=== PATIENT | male | born 1975 | race Caucasian/White ===

== ENCOUNTER 2017-10-02 21:21 | Observation (INO) ==
[2017-10-03] MEDS ORDERED: Sod Chloride 0.9% Inj 1,000 ML IV.SIG ONE ×4 (02:13→11:13)
[2017-10-03] MEDS ORDERED: Morphine Inj 4 MG/ML Vial IV.PUSH ONE (02:13)
--- NOTE | 2017-10-03 02:16 | ED ---
HPI General Chief complaint: Abdominal Pain Stated complaint: Vomiting Time Seen by Provider: 10/03/17 02:12 Source: patient History of Present Illness HPI narrative: The patient is a 41 year old male who presents to the [facility] emergency department with a history of awakening in the morning yesterday with nausea vomiting. 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 The patient reports having continued nausea and vomiting at least an estimated 30 times throughout the day. He reports that he then began to feel dizzy, lightheaded, and have generalized body cramping. He denies having any diarrhea. He last moved his bowels earlier today. He denies having any blood in his stool or black or tarry stools. He reports that he has pain along the sides of his abdomen. He reports that this comes and goes and is also a cramping sensation. The patient denies having any known recent fevers. On review of systems otherwise, he denies having any cough or congestion, neck pain, chest pain, shortness of breath, urinary symptoms, or neurologic symptoms. Related Data Home Medications Medication Instructions Recorded Confirmed atorvastatin 20 mg PO HS 10/03/17 10/03/17 Allergies Allergy/AdvReac Type Severity Reaction Status Date / Time No Known Allergies Allergy Unverified 10/03/17 04:58 Review of Systems ROS Unobtainable All other systems reviewed negative except as stated in HPI PMFSH History History Provided By: Patient Medical History Medical History Hyperlipidemia (Acute) Surgical History Surgical History H/O knee surgery (Acute) Social History Social History Substance History: No History of Abuse Second Hand Smoke Exposure: No Smoking Status: Former smoker Tobacco Type: Cigarettes How Often Do You Have a Drink Containing Alcohol: Monthly or less Recent Travel [facility] within the Last 8 Weeks: No Recent Out of Country Travel within the Last 8 Weeks: No Exam HENMT Head: normocephalic and atraumatic Nose: no nasal discharge and no epistaxis Mouth: moist mucous membranes Eyes Sclera: normal sclerae Pupils: PERRL Neck Neck: trachea midline and no JVD Resp Effort & Inspection: no use of accessory muscles Auscultation: clear to auscultation bilaterally Cardio Rate: regular rate Rhythm: regular rhythm Heart Sounds: no murmurs GI Inspection: non-distended Palpation: soft, no hepatosplenomegaly and tender (The patient reports having tenderness on palpation of bilateral sides of the abdomen. No tenderness specifically on palpation over McBurney's point. Hart sign. Normal bowel sounds are audible. No guarding, rebound, or rigidity.) Skin General: dry skin (warm) Neuro General: alert and awake Cranial Nerves: other Speech: speech normal Motor: no movement abnormalities noted Extrem General: normal to inspection, no clubbing, no cyanosis and no edema Psych Mood: congruent mood Affect: normal affect Judgment: judgment good Course Hospital Course: During the course of the patient's emergency department visit, the patient's history, examination, and differential diagnosis were reviewed with the patient. The patient was placed on a cardiac cath lab radiology technologist with oximetry and frequent blood pressure monitoring. The patient had IV access obtained and blood work sent for analysis. The patient was initially provided normal saline 1 L IV fluid bolus. Reglan 5 mg IV. Reevaluation(s) Reevaluation #1: The patient's results were discussed with him regarding his acute kidney injury. The patient is agreeable with the plan to proceed with admission for IV fluid resuscitation. The patient reports that he is feeling improved after his initial liter of normal saline IV fluids. Time: 05:33 Consultations Consultation #1: The patient's case including history, pertinent physical examination findings, and laboratory studies were discussed with . It was agreed that the patient would be admitted to the hospitalist service. Time: 05:38 Initial Documented Vital Signs Temperature 97.8 F 10/02/17 21:26 Pulse Rate 84 10/02/17 21:26 Respiratory Rate 16 10/02/17 21:26 Blood Pressure 147/101 H 10/02/17 21:26 Pulse Oximetry 98 10/02/17 21:26 Last Documented Vital Signs Temperature 97.8 F 10/02/17 21:26 Pulse Rate 84 10/03/17 03:41 Respiratory Rate 16 10/03/17 03:41 Blood Pressure 147/101 H 10/03/17 03:41 Pulse Oximetry 98 10/03/17 03:41 Medical Decision Making MDM Narrative Medical decision making narrative: The patient's diagnostic studies are remarkable for a white count of 18.7, hemoglobin 16.5, neutrophil predominance at 89.5, platelets are 282. PT 11.3, PTT 27.3, the patient's chemistry is remarkable for a glucose of 125, CPK 355 with a normal MB percent, GFR of 25, creatinine 2.74 with a BUN of 41, CO2 17.8, anion gap 18, alk phos 121, albumin 5.7. Troponin I is less than 0.02. The patient will be admitted to the hospital for an acute kidney injury, continued on IV fluids as resuscitation. This could be related to dehydration. The patient was started on a second liter of normal saline IV fluids. The patient's results were discussed with the patient, including the plan of care. I explained that further testing and/ or monitoring is indicated based on the patient's history, examination, and/ or laboratory findings. Therefore, I recommended admission for additional evaluation. The patient expressed understanding and was agreeable with this plan. The patient was admitted to the hospital in stable condition and sent to a bed under the care of the [facility] service Differential Diagnosis Differential Diagnosis: Rhabdomyolysis, versus dehydration, versus electrolyte derangements, versus viral syndrome, versus pancreatitis, versus diverticulitis , versus colitis Medical Records Medical records reviewed: Yes I reviewed the patient's medical records. Lab Data Lab results reviewed: Yes I reviewed the patient's lab results. Result diagrams: 10/03/17 03:00 10/03/17 03:00 Lab Results 10/03/17 10/03/17 10/03/17 Range/Units 03:00 03:00 03:00 WBC 18.7 H (4.0-11.0) th/mm3 RBC 5.69 (4.50-5.90) mil/mm3 Hgb 16.5 (13.0-17.0) gm/dL Hct 48.9 (39.0-51.0) % MCV 86.0 (80.0-100.0) fL MCH 29.0 (27.0-34.0) pg MCHC 33.7 (32.0-36.0) % RDW 13.3 (11.6-17.2) % Plt Count 282 (150-450) th/mm3 MPV 8.3 (7.0-11.0) fL Neut % (Auto) 89.5 H (16.0-70.0) % Lymph % (Auto) 6.3 L (9.0-44.0) % [place] % (Auto) 4.0 (0.0-8.0) % Eos % (Auto) 0.0 (0.0-4.0) % Baso % (Auto) 0.2 (0.0-2.0) % Neut # (Auto) 16.7 H (1.8-7.7) th/mm3 Lymph # (Auto) 1.2 (1.0-4.8) th/mm3 [place] # (Auto) 0.8 (0.0-0.9) th/mm3 Eos # (Auto) 0.0 (0.0-0.4) th/mm3 Baso # (Auto) 0.0 (0.0-0.2) th/mm3 WBC Differential . Differential Comment Auto diff final PT 11.3 (9.8-11.6) sec INR 1.1 Ratio APTT 27.1 (24.3-30.1) sec Sodium 136 (136-145) meq/L Potassium 4.0 (3.5-5.1) meq/L Chloride 100 (98-107) meq/L Carbon Dioxide 17.8 L (21.0-32.0) meq/L Anion Gap 18 H (5-15) meq/L BUN 41 H (7-18) mg/dL Creatinine 2.74 H (0.60-1.30) mg/dL Estimated GFR 25 L (>89) mL/min Random Glucose 125 H (74-106) mg/dL Calcium 10.7 H (8.5-10.1) mg/dL Total Bilirubin 0.8 (0.2-1.0) mg/dL AST 32 (15-37) U/L ALT 59 (12-78) U/L Alkaline Phosphatase 121 H (45-117) U/L Total Creatine Kinase 355 H (39-308) U/L CK-MB (CK-2) 2.7 (0.5-3.6) ng/mL CK-MB (CK-2) % 0.8 (0.0-4.0) % Troponin I Less than 0.02 L (0.02-0.05) ng/mL Total Protein 9.9 H (6.4-8.2) g/dL Albumin 5.7 H (3.4-5.0) g/dL Lipase 95 (73-393) U/L ECG Data Attestation: I personally reviewed and interpreted this ECG as follows: Interpretation: The patient had an EKG done on arrival. The patient's EKG shows a sinus bradycardia with a sinus arrhythmia, QRS duration is 106 ms, QTC [address] segment elevation is noted, T waves are inverted in V1, lead III. Discharge Plan Discharge Disposition Patient Disposition: 30 Still Patient Discharge Condition Condition: Fair Discharge Details Discharge Problem: Acute kidney injury Physicians Team ED Provider: Olya Galvan Rxs /Orders / Referrals /Forms Prescriptions: No Action atorvastatin 20 mg PO HS RF: 0 Discharge Interventions Interventions: Vital Signs Last Done: 10/03/17 03:41 Status ED Status: With Doctor
[2017-10-03 03:36] LABS: Baso % (Auto) 0.2 % (0.0-2.0); Hematocrit 48.9 % (39.0-51.0); Hemoglobin 16.5 gm/dL (13.0-17.0); Lymph # (Auto) 1.2 th/mm3 (1.0-4.8); Lymph % (Auto) 6.3 % (9.0-44.0); Mean Corpuscular HGB Conc 33.7 % (32.0-36.0); Mean Platelet Volume 8.3 fL (7.0-11.0); Mono # (Auto) 0.8 th/mm3 (0.0-0.9); Neut # (Auto) 16.7 th/mm3 (1.8-7.7); Neut % (Auto) 89.5 % (16.0-70.0); Platelet Count 282 th/mm3 (150-450); Red Blood Count 5.69 mil/mm3 (4.50-5.90); Red Cell Distribution Width 13.3 % (11.6-17.2); White Blood Count 18.7 th/mm3 (4.0-11.0)
[2017-10-03 03:53] LABS: Activated Partial Thrombo Time 27.1 sec (24.3-30.1); INR 1.1 Ratio; Prothrombin Time 11.3 sec (9.8-11.6)
[2017-10-03 03:56] LABS: Albumin 5.7 g/dL (3.4-5.0); Anion Gap 18 meq/L (5-15); Blood Urea Nitrogen 41 mg/dL (7-18); Calcium 10.7 mg/dL (8.5-10.1); Carbon Dioxide 17.8 meq/L (21.0-32.0); Chloride 100 meq/L (98-107); Glucose,Random 125 mg/dL (74-106); Lipase 95 U/L (73-393); Sodium 136 meq/L (136-145)
[2017-10-03 05:01] LABS: Alanine Aminotransferase 59 U/L (12-78); Alkaline Phosphatase 121 U/L (45-117); Creatine Kinase 355 U/L (39-308)
[2017-10-03 05:23] LABS: Aspartate Aminotransferase 32 U/L (15-37); Glomerular Filtration Rate 25 mL/min (>89)
[2017-10-03 05:27] LABS: CKMB Percent 0.8 % (0.0-4.0); Creatine Kinase MB 2.7 ng/mL (0.5-3.6); Total Protein 9.9 g/dL (6.4-8.2)
--- NOTE | 2017-10-03 06:08 | P.PNIM ---
Subjective Interval history: Discussed with ER physician. Patient with leukocytosis, significant anion gap, nausea, vomiting, abdominal pain. Awaiting CT abdomen, lactate prior to accepting to hospitalist service. Physical Exam Vital signs: Vital Signs 10/02/17 21:26 10/03/17 03:41 Temperature 97.8 F Pulse Rate 84 84 Respiratory Rate 16 16 Blood Pressure 147/101 H 147/101 H Pulse Oximetry 98 98 Intake & Output 10/02/17 10/02/17 10/03/17 06:59 18:59 06:59 Weight 81.647 kg Results - Labs CBC & Chem 7: 10/03/17 03:00 10/03/17 03:00 Laboratory Results - last 24 hr 10/03/17 10/03/17 10/03/17 03:00 03:00 03:00 WBC 18.7 H RBC 5.69 Hgb 16.5 Hct 48.9 MCV 86.0 MCH 29.0 MCHC 33.7 RDW 13.3 Plt Count 282 MPV 8.3 Neut % (Auto) 89.5 H Lymph % (Auto) 6.3 L [place] % (Auto) 4.0 Eos % (Auto) 0.0 Baso % (Auto) 0.2 Neut # (Auto) 16.7 H Lymph # (Auto) 1.2 [place] # (Auto) 0.8 Eos # (Auto) 0.0 Baso # (Auto) 0.0 WBC Differential . Differential Comment Auto diff final PT 11.3 INR 1.1 APTT 27.1 Sodium 136 Potassium 4.0 Chloride 100 Carbon Dioxide 17.8 L Anion Gap 18 H BUN 41 H Creatinine 2.74 H Estimated GFR 25 L Random Glucose 125 H Calcium 10.7 H Total Bilirubin 0.8 AST 32 ALT 59 Alkaline Phosphatase 121 H Total Creatine Kinase 355 H CK-MB (CK-2) 2.7 CK-MB (CK-2) % 0.8 Troponin I Less than 0.02 L Total Protein 9.9 H Albumin 5.7 H Lipase 95
[2017-10-03 07:01] LABS: Amphetamine Screen,Urine Neg (Neg); Barbiturate Screen,Urine Neg (Neg); Cannabinoid Screen,Urine Pos (Neg); Cocaine Screen,Urine Neg (Neg); Opiate Screen,Urine Pos (Neg)
[2017-10-03 07:03] LABS: Bacteria,Urine Few /hpf; Bilirubin,Urine Negative (Negative); Calcium Oxalate Crystals,Urine Rare /hpf; Color,Urine Yellow (Yellw/Straw); Glucose,Urine (UA) Negative (Negative); Hyaline Casts,Urine 22 /lpf (0-3); Leukocyte Esterase,Urine Negative (Negative); Mucus,Urine Moderate /lpf (Occasional); Nitrite,Urine Negative (Negative); Specific Gravity,Urine 1.023 (1.002-1.035); Squamous Epithelial Cell,Urine 2 /hpf (0-5)
[2017-10-03 07:04] LABS: Clarity,Urine Hazy (Clear)
[2017-10-03] MEDS ORDERED: Temazepam 15 MG Capsule PO PRN (08:51)
[2017-10-03] MEDS ORDERED: Bisacodyl 10 MG Supp RECTAL PRN (08:51)
--- NOTE | 2017-10-03 09:30 | P.HPIM ---
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 Says yesterday he vomited 30 times, nbnb vomitus. No diarrhea. Says is not food related as no one else is sick who ate the same food. No sick contacts. 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 The patient reports having continued nausea and vomiting at least an estimated 30 times throughout the day. He reports that he then began to feel dizzy, lightheaded, and have generalized body cramping. He denies having any diarrhea. He last moved his bowels earlier today. He denies having any blood in his stool or black or tarry stools. He reports that he has pain along the sides of his abdomen. He reports that this comes and goes and is also a cramping sensation. The patient denies having any known recent fevers. On review of systems otherwise, he denies having any cough or congestion, neck pain, chest pain, shortness of breath, urinary symptoms, or neurologic symptoms. Primary Care Physician: UNKNOWN - Inpatient Certification If this patient has been admitted as an Inpatient: I certify that the inpatient services were ordered in accordance with Medicare regulations governing the order. This includes certification that hospital inpatient services are reasonable and necessary and in the case of services not specified as inpatient-only under 42 CFR 419.22(n), that they are appropriately provided as inpatient services in accordance to with the 2-midnight benchmark under 43 CFR 412.3(e) [facility] - History History Provided By: Patient - Medical History Medical History: Medical History (Last Reviewed 10/03/17 @ 08:45 by Maryann Rock) Hyperlipidemia - Surgical History Surgical History: Surgical History (Last Reviewed 10/03/17 @ 08:45 by Maryann Rock) H/O knee surgery - Family History Family History: Family History (Last Updated 10/03/17 @ 09:29 by Divya Cowart MD) Other Family history of diabetes mellitus Family history of hypertension Stroke - Tobacco History Second Hand Smoke Exposure: No Tobacco Use In Past 30 Days: No Smoking Status: Former smoker Tobacco Type: Cigarettes - Alcohol History How Often Do You Have a Drink Containing Alcohol: Monthly or less - Substance Use History Substance History: No History of Abuse - Travel History Recent Travel in the [place] Within the Last 8 Weeks: No Recent Travel Out of the Country Within the Last 8 Weeks: No - Immunization History Tetanus Immunization: >5 Years Hx Influenza Vaccine This Season: No Medications and Allergies Active Medications: Active Medications Al Hydroxide/Mg Hydroxide (Milk Of Magnesia Liq) 30 ml PO Q12H PRN PRN Reason: Mild Constipation Atorvastatin Calcium (Lipitor) 20 mg PO HS MUNA Bisacodyl (Dulcolax Supp) 10 mg RECTAL DAILY PRN PRN Reason: SEVERE CONSITIPATION Enoxaparin Sodium (Lovenox Inj) 30 mg SQ Q24H MUNA Sodium Chloride (Ns Inj) 1,000 mls @ 100 mls/hr IV.CONT .Q10H MUNA Lactulose (Lactulose Liq) 30 ml PO DAILY PRN PRN Reason: SEVERE CONSITIPATION Ondansetron HCl (Zofran Inj) 4 mg IV.PUSH Q6H PRN PRN Reason: NAUSEA OR VOMITING Senna/Docusate Sodium (Meron-Colace) 1 tab PO BID MUNA Sennosides (Senokot) 17.2 mg PO Q12H PRN PRN Reason: Moderate Constipation Sodium Chloride (Ns Flush) 2 ml IV.FLUSH PRN PRN PRN Reason: FLUSH AFTER USING IV ACCESS Temazepam (Restoril) 15 mg PO HS PRN PRN Reason: INSOMNIA Allergies Allergy/AdvReac Type Severity Reaction Status Date / Time No Known Allergies Allergy Unverified 10/03/17 04:58 Home Medications Medication Instructions Recorded Confirmed Type atorvastatin 20 mg PO HS 10/03/17 10/03/17 History Exam Vital signs: Vital Signs 10/02/17 21:26 10/03/17 03:41 10/03/17 08:54 Temperature 97.8 F Pulse Rate 84 84 75 Respiratory Rate 16 16 18 Blood Pressure 147/101 H 147/101 H 112/66 Pulse Oximetry 98 98 97 Intake & Output 10/02/17 10/03/17 10/03/17 18:59 06:59 18:59 Weight 81.647 kg Narrative: GENERAL: Pleasant 41-year-old male well nourished well-developed patient appears in not acute distress at this time. SKIN: Warm and dry. HEAD: Atraumatic. Normocephalic. EYES: Pupils equal and round. No scleral icterus. No injection or drainage. ENT: No nasal bleeding or discharge. Mucous membranes pink and moist. NECK: Trachea midline. No JVD. CARDIOVASCULAR: Regular rate and rhythm. RESPIRATORY: No accessory muscle use. Clear to auscultation. Breath sounds equal bilaterally. GASTROINTESTINAL: Abdomen soft, mild diffuse abdominal tenderness, nondistended. MUSCULOSKELETAL: Extremities without clubbing, cyanosis, or edema. No obvious deformities. NEUROLOGICAL: Awake and alert. No obvious cranial nerve deficits. Motor grossly within normal limits. Five out of 5 muscle strength in the arms and legs. Normal speech. PSYCHIATRIC: Appropriate mood and affect; insight and judgment normal. Results - Labs CBC & Chem 7: 10/03/17 03:00 10/03/17 03:00 Labs: Short CBC 10/03/17 Range/Units 03:00 WBC 18.7 H (4.0-11.0) th/mm3 Hgb 16.5 (13.0-17.0) gm/dL Hct 48.9 (39.0-51.0) % Plt Count 282 (150-450) th/mm3 BMP 10/03/17 03:00 Sodium 136 Potassium 4.0 Chloride 100 Carbon Dioxide 17.8 L BUN 41 H Creatinine 2.74 H Calcium 10.7 H Cardiac Enzymes 10/03/17 Range/Units 03:00 Total Creatine Kinase 355 H (39-308) U/L CK-MB (CK-2) 2.7 (0.5-3.6) ng/mL Troponin I Less than 0.02 L (0.02-0.05) ng/mL Liver Function 10/03/17 Range/Units 03:00 Total Bilirubin 0.8 (0.2-1.0) mg/dL AST 32 (15-37) U/L ALT 59 (12-78) U/L Alkaline Phosphatase 121 H (45-117) U/L Albumin 5.7 H (3.4-5.0) g/dL Urine 10/03/17 Range/Units 06:15 Urine Color Yellow (Yellw/Straw) Urine Clarity Hazy H (Clear) Urine pH 5.0 (5.0-8.5) Ur Specific Anthony 1.023 (1.002-1.035) Urine Protein 30 H (Neg-Trace) mg/dL Urine Glucose (UA) Negative (Negative) mg/dL - Imaging Impressions Abdomen/Pelvis CT 10/03/17 06:05 CONCLUSION: 1. Negative noncontrast CT abdomen/pelvis. Caprini VTE Risk Assessment Caprini VTE Risk Assessment: Moderate/High Risk (score >= 2) Caprini Risk Assessment Model: Point Value = 1 Point Value = 2 Point Value = 3 Point Value = 5 Age 41-60 Minor surgery BMI > 25 kg/m2 Swollen legs Varicose veins or History of unexplained or recurrent spontaneous Oral contraceptives or hormone replacement Sepsis (< 1 month) Serious lung disease, including pneumonia (< 1 month) Abnormal pulmonary function Acute myocardial infarction Congestive heart failure (< 1 month) History of inflammatory bowel disease Medical patient at bed rest Age 61-74 Arthroscopic surgery Major open surgery (> 45 min) Laparoscopic surgery (> 45 min) Malignancy Confined to bed (> 72 hours) Immobilizing plaster cast Central venous access Age >= 75 History of VTE Family history of VTE Factor V Leiden Prothrombin [id number] Lupus anticoagulant Anticardiolipin antibodies Elevated serum homocysteine Heparin-induced thrombocytopenia Other congenital or acquired thrombophilia Stroke (< 1 month) Elective arthroplasty Hip, pelvis, or leg fracture Acute spinal cord injury (< 1 month) Prophylaxis Regimen: Total Risk Factor Score Risk Level Prophylaxis Regimen 0-1 Low Early ambulation 2 Moderate Order ONE of the following: *Sequential Compression Device (SCD) *Heparin 5000 units SQ BID 3-4 Higher Order ONE of the following medications: *Heparin 5000 units SQ TID *Enoxaparin/Lovenox 40 mg SQ daily (WT < 150 kg, CrCl > 30 mL/min) *Enoxaparin/Lovenox 30 mg SQ daily (WT < 150 kg, CrCl > 10-29 mL/min) *Enoxaparin/Lovenox 30 mg SQ BID (WT < 150 kg, CrCl > 30 mL/min) AND/OR *Sequential Compression Device (SCD) 5 or more Highest Order ONE of the following medications: *Heparin 5000 units SQ TID (Preferred with Epidurals) *Enoxaparin/Lovenox 40 mg SQ daily (WT < 150 kg, CrCl > 30 mL/min) *Enoxaparin/Lovenox 30 mg SQ daily (WT < 150 kg, CrCl > 10-29 mL/min) *Enoxaparin/Lovenox 30 mg SQ BID (WT < 150 kg, CrCl > 30 mL/min) AND *Sequential Compression Device (SCD) Assessment and Plan - Plan Mild Rhabdomyolysis Dehydration. Elevated Anion Gap. LA is normal. Monitor AG until closed Intractable nausea and vomiting. Abdominal cramps, legs cramps Acute kidney injury 2/2 above. CR of 2.74 , bun 41, GFR of 25. Patient says doesn't have a h/o of kidney problems. Transaminitis Leukocytosis likely reactive and also volume contraction CT A/P reviewed and also findings discussed with the ER physician: Negative noncontrast CT abdomen/pelvis. Received 4L NS Continue NS at 100 cc /hr Monitor liver function. Monitor kidney function, avoid nephrotoxins. UA no signs of infection. Do US kidney. Consult nephrology if doesn't improve with IVF Toxicology positive for opiates ( poss from eds given in ER ) and also positive for cannabis. Counselled. However patient denies any current or past h/ o illicit drug use or alcohol use. EKG on admission shows a sinus bradycardia with a sinus arrhythmia, QRS duration is 106 ms, QTC [address] segment elevation is noted, T waves are inverted in V1, lead III. Hold atorvastatin as elevated LFTs and also rhabdomyolysis on CLD as tolerated, advance diet as tolerated DVT ppx scd/teds/lovenox per renal function Discussed Condition With: patient, nurse, ED physician Dr Galvan
[2017-10-03] MEDS: Senna/Docusate Sodium 8.6/50 MG Tablet PO SCH ×2 (10:13→22:10)
[2017-10-03] MEDS: Sod Chloride 0.9% Inj 1,000 ML IV.CONT SCH (10:29)
[2017-10-03] MEDS: Enoxaparin Inj 30 MG/0.3 ML Syringe SQ SCH (10:32)
--- NOTE | 2017-10-03 21:48 | ECG ---
Date Performed: 10/03/2017 Time Performed: 05:10:21 PTAGE: 41 years EKG: SINUS BRADYCARDIA WITH SINUS ARRHYTHMIA BORDERLINE ECG NO PREVIOUS TRACING DOCTOR: Chan Eagle Interpretating Date/Time 10/03/2017 21:47:07
[2017-10-04] MEDS: Sod Chloride 0.9% Inj 1,000 ML IV.CONT SCH ×2 (01:53→11:52)
[2017-10-04 06:26] LABS: Baso % (Auto) 0.3 % (0.0-2.0); Eos # (Auto) 0.2 th/mm3 (0.0-0.4); Eos % (Auto) 2.4 % (0.0-4.0); Hematocrit 38.5 % (39.0-51.0); Hemoglobin 13.1 gm/dL (13.0-17.0); Lymph # (Auto) 1.9 th/mm3 (1.0-4.8); Lymph % (Auto) 25.4 % (9.0-44.0); Mean Corpuscular HGB Conc 34.1 % (32.0-36.0); Mean Corpuscular Hemoglobin 30.2 pg (27.0-34.0); Mean Corpuscular Volume 88.5 fL (80.0-100.0); Mean Platelet Volume 8.4 fL (7.0-11.0); Mono # (Auto) 0.5 th/mm3 (0.0-0.9); Mono % (Auto) 7.3 % (0.0-8.0); Neut # (Auto) 4.9 th/mm3 (1.8-7.7); Neut % (Auto) 64.6 % (16.0-70.0); Platelet Count 202 th/mm3 (150-450); Red Blood Count 4.34 mil/mm3 (4.50-5.90); Red Cell Distribution Width 13.7 % (11.6-17.2); White Blood Count 7.6 th/mm3 (4.0-11.0)
[2017-10-04 07:20] LABS: Alanine Aminotransferase 34 U/L (12-78); Albumin 3.3 g/dL (3.4-5.0); Alkaline Phosphatase 78 U/L (45-117); Anion Gap 9 meq/L (5-15); Aspartate Aminotransferase 28 U/L (15-37); Blood Urea Nitrogen 15 mg/dL (7-18); Calcium 8.6 mg/dL (8.5-10.1); Carbon Dioxide 22.8 meq/L (21.0-32.0); Chloride 112 meq/L (98-107); Creatine Kinase 496 U/L (39-308); Glomerular Filtration Rate Greater Than 89 mL/min (>89); Glucose,Random 92 mg/dL (74-106); Potassium 3.8 meq/L (3.5-5.1); Sodium 144 meq/L (136-145); Total Protein 6.3 g/dL (6.4-8.2)
[2017-10-04 07:38] LABS: CKMB Percent 0.8 % (0.0-4.0)
--- NOTE | 2017-10-04 09:39 | P.PN ---
Subjective Interval history: Follow-up visit rhabdomyolysis, HLD. Patient seen and examined today. Reports no nausea or vomiting. States he is feeling fine. States he does not feel dizzy when he goes up and walk around. Denies pain and discomfort. Denies SOB / dyspnea. Denies chest pain, palpitations, headaches, dizziness. Denies fevers , chills, n/v/d. Denies dysuria. Patient requesting to go home. 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 States that he really needs to go back to work and monitor everyone in his worksite. 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 Discussed with patient importance of following up with all his lab results. Physical Exam Vital signs: Vital Signs 10/03/17 16:00 10/03/17 20:30 10/03/17 21:24 Temperature 98.4 F 98.4 F Pulse Rate 72 79 68 Respiratory Rate 15 18 Blood Pressure 122/72 133/73 Pulse Oximetry 96 97 10/04/17 00:27 10/04/17 03:04 10/04/17 08:15 Temperature 98.2 F 98.0 F 98.1 F Pulse Rate 68 70 65 Respiratory Rate 18 18 20 Blood Pressure 118/72 117/76 122/75 Pulse Oximetry 96 97 96 Intake & Output 10/03/17 10/04/17 10/04/17 18:59 06:59 18:59 Intake Total 3500 / 3500 1000 / 1000 Balance 3500 / 3500 1000 / 1000 Intake: IV 3000 / 3000 1000 / 1000 NS Inj 1,000 ML @ 100 mls/hr IV 1000 / 1000 .CONT .Q10H MUNA Rx#:[id number] NS Inj 1,000 ML @ Wide Open IV. 1000 / 1000 SIG BOLUS ONE Rx#:[id number] Oral 500 / 500 Other: # Voids 3 Date of Last Bowel Movement 10/01/17 Narrative: GENERAL: This is a well-nourished, well-developed patient, in no apparent distress. SKIN: Warm and dry HEENT: Normocephalic. Pupils equal round and reactive. Nose without bleeding. Airway patent. NECK: Trachea midline. No JVD. Supple. CARDIOVASCULAR: Regular rate and rhythm without murmurs, gallops, or rubs. RESPIRATORY: Clear to auscultation. Breath sounds equal bilaterally. No wheezes , rales, or rhonchi. GASTROINTESTINAL: Abdomen soft, non-tender, nondistended. Bowel Sounds normoactive x4. MUSCULOSKELETAL: Extremities without clubbing, cyanosis, or edema. NEUROLOGICAL: Awake and alert. Oriented to time, place, person. No focal neuro deficit. Moves all extremities. Normal speech. Results - Labs CBC & Chem 7: 10/04/17 05:55 10/04/17 05:55 Laboratory Results - last 24 hr 10/04/17 10/04/17 05:55 05:55 WBC 7.6 RBC 4.34 L Hgb 13.1 D Hct 38.5 L MCV 88.5 MCH 30.2 MCHC 34.1 RDW 13.7 Plt Count 202 MPV 8.4 Neut % (Auto) 64.6 Lymph % (Auto) 25.4 [place] % (Auto) 7.3 Eos % (Auto) 2.4 Baso % (Auto) 0.3 Neut # (Auto) 4.9 Lymph # (Auto) 1.9 [place] # (Auto) 0.5 Eos # (Auto) 0.2 Baso # (Auto) 0.0 WBC Differential . 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 Mild Rhabdomyolysis Dehydration. Elevated Anion Gap. LA is normal. Monitor AG until closed Intractable nausea and vomiting. Abdominal cramps, legs cramps Transaminitis Leukocytosis likely reactive and also volume contraction -CT A/P reviewed and also findings discussed with the ER physician: Negative noncontrast CT abdomen/pelvis. -EKG on admission shows a sinus bradycardia with a sinus arrhythmia, QRS duration is 106 ms, QTC [address] segment elevation is noted, T waves are inverted in V1, lead III. -Received 4L NS -Increase NS at 150 cc /hr -Monitor liver function. Improved. WNL. Hold atorvastatin for now till he sees his PCP. -Discussed importance of fluid hydration. -CK trend 3550--> 496 -->465 Monitor kidney function, avoid nephrotoxins. UA no signs of infection. Acute kidney injury 2/2 above. CR of 2.74 , bun 41, GFR of 25. -Patient says doesn't have a h/o of kidney problems. 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 WNL Toxicology positive for opiates ( poss from eds given in ER ) and also positive for cannabis. -Counselled DVT prop ambulatory Code Status: Full Code Discussed Condition With: Patient, nurse Discharge Planning: Plan to DC home when CK improved and clinically improved.
[2017-10-04] MEDS: Senna/Docusate Sodium 8.6/50 MG Tablet PO SCH (11:58)
[2017-10-04] MEDS: Enoxaparin Inj 30 MG/0.3 ML Syringe SQ SCH (11:58)
[2017-10-04 15:34] LABS: CKMB Percent 0.7 % (0.0-4.0); Creatine Kinase MB 3.1 ng/mL (0.5-3.6)
--- NOTE | 2017-10-04 17:11 | P.DS ---
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 emergency department with a history of awakening in the morning yesterday with nausea vomiting. Says yesterday he vomited 30 times, nbnb vomitus. No diarrhea. Says is not food related as no one else is sick who ate the same food. No sick contacts. 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 The patient reports having continued nausea and vomiting at least an estimated 30 times throughout the day. He reports that he then began to feel dizzy, lightheaded, and have generalized body cramping. He denies having any diarrhea. He last moved his bowels earlier today. He denies having any blood in his stool or black or tarry stools. He reports that he has pain along the sides of his abdomen. He reports that this comes and goes and is also a cramping sensation. The patient denies having any known recent fevers. On review of systems otherwise, he denies having any cough or congestion, neck pain, chest pain, shortness of breath, urinary symptoms, or neurologic symptoms. 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 emergency department with a history of awakening in the morning yesterday with nausea vomiting. Mild Rhabdomyolysis,Dehydration, Elevated Anion Gap, he was treated with IV fluids. Patient received more than [address] of the abdomen and pelvis negative. EKG on admission shows a sinus bradycardia with a sinus arrhythmia, QRS duration is 106 ms, QTC [address] segment elevation is noted, T waves are inverted in V1, lead III. Were elevated. Which has significantly improve after fluid hydration. CK has trended down. He was in acute kidney injury but after the IV fluids his BUN and creatinine has improved. Patient's toxicology is positive for cannabis and opiates but opiates possibly meds given in the ED. Patient was counseled regarding substance use. Patient is clinically improved. Discussed with patient that we will hold atorvastatin for now because of the rhabdomyolysis. He can restart the medication when he sees his primary care doctor and needs a repeat CK during that time before restarting the medication. Encourage lifestyle change diet and exercise although patient appears fit. Patient has met maximal benefits of hospitalization. Clinically stable for discharge. - Time Spent with Patient Total time spent providing and/or coordinating discharge services: - Quality: VTE Deep Vein Thrombosis/Pulmonary Embolism Present on Admission: No Exam Vital signs: Vital Signs 10/03/17 20:30 10/03/17 21:24 10/04/17 00:27 Temperature 98.4 F 98.2 F Pulse Rate 79 68 68 Respiratory Rate 18 18 Blood Pressure 133/73 118/72 Pulse Oximetry 97 96 10/04/17 03:04 10/04/17 08:15 Temperature 98.0 F 98.1 F Pulse Rate 70 65 Respiratory Rate 18 20 Blood Pressure 117/76 122/75 Pulse Oximetry 97 96 Intake & Output 10/03/17 10/04/17 10/04/17 18:59 06:59 18:59 Intake Total 3500 / 3500 1000 / 1000 1000 / 1000 Balance 3500 / 3500 1000 / 1000 1000 / 1000 Intake: IV 3000 / 3000 1000 / 1000 1000 / 1000 NS Inj 1,000 ML @ 150 mls/hr IV 1000 / 1000 1000 / 1000 .CONT .[id number] [facility] Rx#:[id number] NS Inj 1,000 ML @ Wide Open IV. 1000 / 1000 SIG BOLUS ONE Rx#:[id number] Oral 500 / 500 Other: # Voids 3 Date of Last Bowel Movement 10/01/17 Narrative: GENERAL: This is a well-nourished, well-developed patient, in no apparent distress. SKIN: Warm and dry HEENT: Normocephalic. Pupils equal round and reactive. Nose without bleeding. Airway patent. NECK: Trachea midline. No JVD. Supple. CARDIOVASCULAR: Regular rate and rhythm without murmurs, gallops, or rubs. RESPIRATORY: Clear to auscultation. Breath sounds equal bilaterally. No wheezes , rales, or rhonchi. GASTROINTESTINAL: Abdomen soft, non-tender, nondistended. Bowel Sounds normoactive x4. MUSCULOSKELETAL: Extremities without clubbing, cyanosis, or edema. NEUROLOGICAL: Awake and alert. Oriented to time, place, person. No focal neuro deficit. Moves all extremities. Normal speech. Results Procedures completed during hospitalization: None Labs on day of discharge: Labs from last 24 hours 10/04/17 10/04/17 10/04/17 14:10 05:55 05:55 WBC 7.6 RBC 4.34 L Hgb 13.1 D Hct 38.5 L MCV 88.5 MCH 30.2 MCHC 34.1 RDW 13.7 Plt Count 202 MPV 8.4 Neut % (Auto) 64.6 Lymph % (Auto) 25.4 [place] % (Auto) 7.3 Eos % (Auto) 2.4 Baso % (Auto) 0.3 Neut # (Auto) 4.9 Lymph # (Auto) 1.9 [place] # (Auto) 0.5 Eos # (Auto) 0.2 Baso # (Auto) 0.0 WBC Differential . Differential Comment Auto diff final Sodium 144 Potassium 3.8 Chloride 112 H D Carbon Dioxide 22.8 Anion Gap 9 BUN 15 Creatinine 0.74 Estimated GFR Greater than 89 Random Glucose 92 Calcium 8.6 D Total Bilirubin 0.9 AST 28 ALT 34 Alkaline Phosphatase 78 Total Creatine Kinase 465 H 496 H CK-MB (CK-2) 3.1 4.0 H CK-MB (CK-2) % 0.7 0.8 Total Protein 6.3 L D Albumin 3.3 L D - Impressions ITS Impressions Abdomen/Pelvis CT 10/03/17 06:05 CONCLUSION: 1. Negative noncontrast CT abdomen/pelvis. Discharge Plan - Discharge Disposition Patient Disposition: 01 Discharge Home - Discharge Condition Condition: Fair - Discharge Order Discharge Orders: Discharge Order (Routine); Ordered 10/04/17 Ordered By: Gustavo Aquino - Physicians Team Primary Care Provider: UNKNOWN, Attending Provider: Clare Valentin
== END 2017-10-04 19:55 | disposition home or self-care (01) ==
LOC: NEPHCDU 21:21 → NEDA 21:21 → NEPE 21:21 → NEPHCDU 10-03 14:51
PROVIDERS: ADMIT Hospitalist; ATTEND Hospitalist